=== PATIENT | male | born 1975 | race African-American/Black ===

== ENCOUNTER 2020-04-26 14:30 | Emergency (ER) | payer OTHER ==
[~2020-04-26] VITALS: Ht 185.4 cm; Wt 181.4 kg
--- NOTE | ~2020-04-26 | EMS ---
[address] [address] EMS Patient Care Report Name: AP ARMENTA Room #: DEP SULEIMAN Haque#: [id number] Admission: 04/26/20 Attend Phys: Discharge: 04/26/20 Date of : 75 Report #: [id number] THIS REPORT FOR: //name// Report Transmitted: 05/01/2020 22:03 EMS Care Summary [facility] MED-ACT Incident [id number] @ 04/26/2020 13:57 Incident Location [address] [place], [place] [address] Patient AP ARMENTA Male, 44 Years 1975 Patient Address [facility] n [address] [place] [address] Patient History Diabetes, Patient Allergies No known allergies, Patient Medications Sildenafil, Metformin, Lantus, Humalog, Chief Complaint Heat syncope Disposition Transported No Lights/[place] Dispatch Reason Cardiac Arrest/ Transported To [facility] Narrative Pt found lying supine in the front yard of a residence with his head elevated due to the natural terrain of the yard. Pt was warm to the touch and sweating. Pt states "I started to feel light headed and dizzy so I laid down in the grass. I woke up to the mailman pushing on my chest. I feel ok now I just [address] [address] EMS Patient Care Report Name: AP ARMENTA Room #: DEP ER Shabnam#: [id number] Admission: 04/26/20 Attend Phys: Discharge: 04/26/20 Date of : 75 Report #: [id number] need a drink of water." Pt denies any chest pain, nausea, vomiting, dizziness or shortness of breath. Pt was assisted the ambulance cot and secured to cot with seat belts. Pt was moved to the ambulance without incident. EMS alerted [facility] on [facility]. Pt was delivered to ER bed 9 without change. Pt was assisted to hospital bed and secured with locked side rails in the upright position. EMS gave report to receiving hospital staff transferring care and pt to them. Initial Vitals @14:11P: 99,BP: 145/86,SpO2: 94, @14:04P: 105,SpO2: 95,[place] Suspected: false @14:23P: 103,R: 18,BP: 122/83,Pain: 0/10,GCS: 15,SpO2: 95,Revised Trauma: 12, @14:01P: 105,R: 18,BP: 156/111,Pain: 0/10,GCS: 15,Glucose: 328,SpO2: 95,Revised Trauma: 12, Assessments @14:05MENTAL:Person Oriented,Time Oriented,Event Oriented,Place Oriented,SKIN:Diaphoresis,Hot,HEENT:Eyes: Left Pupil: 3-mm,Eyes: Right Pupil: 3-mm,Head/Face: No Abnormalities,Neck/Airway: No Abnormalities,LUNG SOUNDS:General: No Abnormalities,ABDOMEN:General: No Abnormalities,PELVIS//GI:No Abnormalities,EXTREMITIES:Left Arm: No Abnormalities,Right Arm: No Abnormalities,Left Leg: No Abnormalities,Right Leg: No Abnormalities,PULSE:Radial: 2+ Normal,NEURO:No Abnormalities, Impression Generalized Weakness Procedures @14:13Normal Saline (.9% NaCl) 200cc (18 ga) Site: Antecubital-LeftResponse: ImprovedSucceeded Timeline 13:55,Call Received 13:55,Psap Call 13:57,Dispatched 13:57,En Route 13:59,On Scene 14:00,At Patient 14:01,BP: 156/111 M,PULSE: 105,RR: 18 R,SPO2: 95 Ox,ETCO2: ,B,PAIN: 0,GCS: 15, 14:04,BP: / M,PULSE: 105,RR: R,SPO2: 95 Ox,ETCO2: ,BG: ,PAIN: ,GCS: , 14:11,BP: 145/86 M,PULSE: 99,RR: R,SPO2: 94 Ox,ETCO2: ,BG: ,PAIN: ,GCS: , 14:13,Normal Saline (.9% NaCl) 200cc 18 ga Site: Antecubital-Left,[facility] [address] [place] [address] EMS Patient Care Report Name: AP ARMENTA Room #: DEP SULEIMAN Haque#: [id number] Admission: 04/26/20 Attend Phys: Discharge: 04/26/20 Date of : 75 Report #: [id number] 14:16,Depart Scene 14:23,BP: 122/83 M,PULSE: 103,RR: 18 R,SPO2: 95 Ox,ETCO2: ,BG: ,PAIN: 0,GCS: 15, 14:24,At Destination 14:46,Call Closed Disclaimer v1.1 Copyright 2020 [employer] This EMS Care Summary contains data elements from the applicable legal record (which may be displayed differently). It is designed to provide pertinent information for the following purposes: continuity of care, clinical quality, and state data reporting. The complete legal record is available to ED staff and administrators of the receiving hospital in [employer]s Patient Tracker. All data is provided "as is."
[2020-04-26] MEDS ORDERED: LIPITOR20 MG PO (14:37)
[2020-04-26] MEDS ORDERED: METFORMIN HCL500 M3 PO (14:38)
[2020-04-26] MEDS ORDERED: HUMALOG100 UNIT/1 SUBQ (14:41)
[2020-04-26] MEDS ORDERED: LANTUS SUBQ (14:41)
[2020-04-26] MEDS ORDERED: KATERZIA1 MG/1 ML PO (14:41)
[2020-04-26] MEDS ORDERED: LEXAPRO 10 MG T10 M2 PO (14:41)
[2020-04-26 15:02] LABS: ABSOLUTE NEUTROPHILS 5.1 thou/uL (1.4-8.2); BASOPHILS 0.7 % (0.0-2.0); EOSINOPHILS 2.5 % (0.0-3.0); HEMATOCRIT 36.1 % (42.0-52.0); HEMOGLOBIN 12.5 gm/dL (14.0-18.0); LYMPHOCYTES 24.4 % (24.0-44.0); MCH 31.4 pg (26.0-34.0); MCHC 34.7 g/dL (28.0-37.0); MCV 90.6 fL (80.0-100.0); PLATELET COUNT 190 thou/uL (150-400); POLYS 65.4 % (36.0-66.0); RBC 3.99 mil/uL (4.50-6.00); RDW 13.4 % (10.5-14.5); WBC 7.8 thou/uL (4.0-11.0)
[2020-04-26 15:07] LABS: ANION GAP 10 mmol/L (7-16); BUN 10 mg/dL (7-18); CALCIUM 6.7 mg/dL (8.5-10.1); CHLORIDE 106 mmol/L (98-107); CO2 23 mmol/L (21-32); CREATININE 0.7 mg/dL (0.7-1.3); GLUCOSE 263 mg/dL (74-106); POTASSIUM 3.3 mmol/L (3.5-5.1); SODIUM 139 mmol/L (136-145)
[2020-04-26 15:17] LABS: ALBUMIN 2.6 g/dL (3.4-5.0); SGOT 47 U/L (15-37); SGPT 74 U/L (30-65); TOTAL BILIRUBIN 0.2 mg/dL (0.2-1.0); TOTAL PROTEIN 5.7 g/dL (6.4-8.2); TROPONIN-I <0.06 ng/mL (<0.06)
--- NOTE | 2020-04-26 16:31 | EKG ---
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
[2020-04-26 17:09] LABS: URINE BILIRUBIN NEGATIVE (Negative); URINE BLOOD NEGATIVE (Negative); URINE CLARITY CLEAR; URINE COLOR YELLOW; URINE GLUCOSE-RANDOM* 2+ (Negative); URINE KETONES TRACE (Negative); URINE LEUKOCYTES-REFLEX NEGATIVE (Negative); URINE NITRITE-REFLEX NEGATIVE (Negative); URINE PROTEIN (DIPSTICK) NEGATIVE (Negative); URINE SPECIFIC GRAVITY >= 1.030 (1.005-1.035)
[2020-04-26 18:45] VITALS: BP 128/88
== END 2020-04-26 18:46 | disposition home or self-care (01) ==
LOC: ER 14:30
PROVIDERS: Physician Assistant
DX: T67.5XXA Heat exhaustion, unspecified, initial encounter (principal); R55 Syncope and collapse; E86.9 Volume depletion, unspecified; I10 Essential (primary) hypertension; E11.9 Type 2 diabetes mellitus without complications; Z79.4 Long term (current) use of insulin; X30.XXXA Exposure to excessive natural heat, initial encounter; Y93.89 Activity, other specified; Y92.89 Other specified places as the place of occurrence of the external cause; Y99.8 Other external cause status

== ENCOUNTER 2020-06-05 15:55 | Inpatient (IN) | payer OTHER ==
[~2020-06-05] VITALS: Ht 188 cm; Wt 183.3 kg
--- NOTE | ~2020-06-05 | EMS ---
[facility] [address] [place] [address] EMS Patient Care Report Name: AP ARMENTA Room #: 211-P ADM IN M.R.#: [id number] Admission: 06/05/20 Attend Phys: Alan Franco MD Discharge: Date of : 75 Report #: [id number] THIS REPORT FOR: //name// Report Transmitted: 06/06/2020 16:31 EMS Care Summary [facility] MED-ACT Incident [id number] @ 06/05/2020 15:09 Incident Location [address] [place] [address] Patient AP ARMENTA Male, 44 Years 1975 Patient Address [address] [place] [address] Patient History Diabetes,Hypertension (HTN), Patient Allergies No known allergies, Patient Medications Sildenafil, Metformin, Lantus, Humalog, Chief Complaint Chest Pain Disposition Transported No Lights/[place] Dispatch Reason Breathing Problem Transported To 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 Pt had been working all day in the 90 plus heat since about 8 am this morning. Pt was sweating and holding his chest. LFD stated that they gave the pt 324 mg of asa canal boat captain of ambulance. Pt had a similar issue about 2 months and was found to have [facility] [address] [place] [address] EMS Patient Care Report Name: AP ARMENTA Room #: 211-P ADM IN M.R.#: [id number] Admission: 06/05/20 Attend Phys: Alan Franco MD Discharge: Date of : 75 Report #: [id number] dehydration. Pt was moved the ambulance and he stopped sweating once he was in the AC. Pt states "I started having sharp left sided chest pain about 3 hours ago. The pain is about a 6/10 now but it goes up to an 8/10 when I try to take a deep breath then the pain goes away. Pt assisted to ambulance and secured with seat belts. Pt was moved to ambulance without incident. EMS alerted hosp on [facility] canal boat captain. Pt was delivered to ER bed 5 without change. Pt was assisted to ER bed and secured with locked side rails in the upright position. EMS gave report to receiving RN transferring care and pt to ER staff. Initial Vitals @15:34P: 112,BP: 86/59, @15:45P: 112, @15:32P: 114,BP: 111/68,Pain: 6/10,GCS: 15, @15:28P: 117,R: 18,BP: 88/58,Pain: 6/10,GCS: 15,SpO2: 98,Revised Trauma: 11, @15:29P: 112,Pain: 4/10,[place] Suspected: false @15:28P: 115,Pain: 4/10,GCS: 15,Glucose: 324,[place] Suspected: false @15:50P: 110,R: 18,BP: 148/67,Pain: 4/10,GCS: 15,SpO2: 98,Revised Trauma: 12, Assessments @16:04MENTAL:Person Oriented,Time Oriented,Event Oriented,Place Oriented,SKIN:Diaphoresis,Hot,HEENT:Eyes: Left Pupil: 3-mm,Eyes: Right Pupil: 3-mm,Head/Face: No Abnormalities,Neck/Airway: No Abnormalities,LUNG SOUNDS:General: No Abnormalities,ABDOMEN:General: No Abnormalities,PELVIS//GI:No Abnormalities,EXTREMITIES:Left Arm: No Abnormalities,Right Arm: No Abnormalities,Left Leg: No Abnormalities,Right Leg: No Abnormalities,PULSE:Radial: 2+ Normal,NEURO:No Abnormalities, Impression Chest Pain / Discomfort Procedures @PTAAspirin - 324 Milligrams (mg) - OralResponse: Improved@15:2912-Lead ECGResponse: UnchangedSucceeded@15:4512-Lead ECGResponse: UnchangedSucceeded@15:28Saline Lock 10cc (18 ga) Site: Antecubital-LeftResponse: UnchangedSucceeded Timeline SUPER[employer]ING [employer]ING,Aspirin - 324 Milligrams (mg) - Oral,Response: Improved 15:08,Call Received 15:08,Psap Call 15:09,Dispatched 15:10,En Route 15:19,On Scene 15:21,At Patient [address] [address] EMS Patient Care Report Name: KATHIAP Room #: 211-P ADM IN M.R.#: [id number] Admission: 06/05/20 Attend Phys: Alan Franco MD Discharge: Date of : 75 Report #: [id number] 15:28,Saline Lock 10cc 18 ga Site: Antecubital-Left,Response: UnchangedSucceeded, 15:28,BP: / M,PULSE: 115,RR: R,SPO2: Ox,ETCO2: ,B,PAIN: 4,GCS: 15, 15:28,BP: 88/58 M,PULSE: 117,RR: 18 R,SPO2: 98 Ox,ETCO2: ,BG: ,PAIN: 6,GCS: 15, 15:29,12-Lead ECG,Response: UnchangedSucceeded, 15:29,BP: / M,PULSE: 112,RR: R,SPO2: Ox,ETCO2: ,BG: ,PAIN: 4,GCS: , 15:32,BP: 111/68 M,PULSE: 114,RR: R,SPO2: Ox,ETCO2: ,BG: ,PAIN: 6,GCS: 15, 15:34,BP: 86/59 M,PULSE: 112,RR: R,SPO2: Ox,ETCO2: ,BG: ,PAIN: ,GCS: , 15:37,Depart Scene 15:45,12-Lead ECG,Response: UnchangedSucceeded, 15:45,BP: / M,PULSE: 112,RR: R,SPO2: Ox,ETCO2: ,BG: ,PAIN: ,GCS: , 15:50,BP: 148/67 M,PULSE: 110,RR: 18 R,SPO2: 98 Ox,ETCO2: ,BG: ,PAIN: 4,GCS: 15, 15:52,At Destination 16:25,Call Closed Disclaimer v1.1 Copyright 2020 [employer] This EMS Care Summary contains data elements from the applicable legal record (which may be displayed differently). It is designed to provide pertinent information for the following purposes: continuity of care, clinical quality, and state data reporting. The complete legal record is available to ED staff and administrators of the receiving hospital in [employer]'s Patient Tracker. All data is provided "as is."
--- NOTE | ~2020-06-05 | EMS ---
[facility] [address] [place] [address] EMS Patient Care Report Name: AP ARMENTA Room #: 170-5 ADM IN M.R.#: [id number] Admission: 06/05/20 Attend Phys: Alan Franco MD Discharge: Date of : 75 Report #: [id number] THIS REPORT FOR: //name// Report Transmitted: 06/05/2020 19:54 EMS Care Summary [facility] MED-ACT Incident [id number] @ 06/05/2020 15:09 Incident Location [address] [place] [address] Patient AP ARMENTA Male, 44 Years 1975 Patient Address [address] [place] [address] Patient History Diabetes,Hypertension (HTN), Patient Allergies No known allergies, Patient Medications Sildenafil, Metformin, Lantus, Humalog, Chief Complaint Chest Pain Disposition Transported No Lights/[place] Dispatch Reason Breathing Problem Transported To [facility] Narrative 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 Pt had been working all day in the 90 plus heat since about 8 am this morning. Pt was sweating and holding his chest. LFD stated that they gave the pt 324 mg of asa therapist's assistant of ambulance. Pt had a similar issue about 2 months and was found to have [facility] [address] [place] [address] EMS Patient Care Report Name: AP ARMENTA Room #: 170-5 ADM IN M.R.#: [id number] Admission: 06/05/20 Attend Phys: Alan Franco MD Discharge: Date of : 75 Report #: [id number] dehydration. Pt was moved the ambulance and he stopped sweating once he was in the AC. Pt states "I started having sharp left sided chest pain about 3 hours ago. The pain is about a 6/10 now but it goes up to an 8/10 when I try to take a deep breath then the pain goes away. Pt assisted to ambulance and secured with seat belts. Pt was moved to ambulance without incident. EMS alerted hosp on [facility] therapist's assistant. Pt was delivered to ER bed 5 without change. Pt was assisted to ER bed and secured with locked side rails in the upright position. EMS gave report to receiving RN transferring care and pt to ER staff. Initial Vitals @15:34P: 112,BP: 86/59, @15:45P: 112, @15:32P: 114,BP: 111/68,Pain: 6/10,GCS: 15, @15:28P: 117,R: 18,BP: 88/58,Pain: 6/10,GCS: 15,SpO2: 98,Revised Trauma: 11, @15:29P: 112,Pain: 4/10,[place] Suspected: false @15:28P: 115,Pain: 4/10,GCS: 15,Glucose: 324,[place] Suspected: false @15:50P: 110,R: 18,BP: 148/67,Pain: 4/10,GCS: 15,SpO2: 98,Revised Trauma: 12, Assessments @16:04MENTAL:Person Oriented,Time Oriented,Event Oriented,Place Oriented,SKIN:Diaphoresis,Hot,HEENT:Eyes: Left Pupil: 3-mm,Eyes: Right Pupil: 3-mm,Head/Face: No Abnormalities,Neck/Airway: No Abnormalities,LUNG SOUNDS:General: No Abnormalities,ABDOMEN:General: No Abnormalities,PELVIS//GI:No Abnormalities,EXTREMITIES:Left Arm: No Abnormalities,Right Arm: No Abnormalities,Left Leg: No Abnormalities,Right Leg: No Abnormalities,PULSE:Radial: 2+ Normal,NEURO:No Abnormalities, Impression Chest Pain / Discomfort Procedures @PTAAspirin - 324 Milligrams (mg) - OralResponse: Improved@15:2912-Lead ECGResponse: UnchangedSucceeded@15:4512-Lead ECGResponse: UnchangedSucceeded@15:28Saline Lock 10cc (18 ga) Site: Antecubital-LeftResponse: UnchangedSucceeded Timeline 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,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 - 324 Milligrams (mg) - Oral,Response: Improved 15:08,Call Received 15:08,Psap Call 15:09,Dispatched 15:10,En Route 15:19,On Scene 15:21,At Patient [address] [address] EMS Patient Care Report Name: AP ARMENTA Room #: 170-5 ADM IN M.R.#: [id number] Admission: 06/05/20 Attend Phys: Alan Fracno MD Discharge: Date of : 75 Report #: [id number] 15:28,Saline Lock 10cc 18 ga Site: Antecubital-Left,Response: UnchangedSucceeded, 15:28,BP: / M,PULSE: 115,RR: R,SPO2: Ox,ETCO2: ,B,PAIN: 4,GCS: 15, 15:28,BP: 88/58 M,PULSE: 117,RR: 18 R,SPO2: 98 Ox,ETCO2: ,BG: ,PAIN: 6,GCS: 15, 15:29,12-Lead ECG,Response: UnchangedSucceeded, 15:29,BP: / M,PULSE: 112,RR: R,SPO2: Ox,ETCO2: ,BG: ,PAIN: 4,GCS: , 15:32,BP: 111/68 M,PULSE: 114,RR: R,SPO2: Ox,ETCO2: ,BG: ,PAIN: 6,GCS: 15, 15:34,BP: 86/59 M,PULSE: 112,RR: R,SPO2: Ox,ETCO2: ,BG: ,PAIN: ,GCS: , 15:37,Depart Scene 15:45,12-Lead ECG,Response: UnchangedSucceeded, 15:45,BP: / M,PULSE: 112,RR: R,SPO2: Ox,ETCO2: ,BG: ,PAIN: ,GCS: , 15:50,BP: 148/67 M,PULSE: 110,RR: 18 R,SPO2: 98 Ox,ETCO2: ,BG: ,PAIN: 4,GCS: 15, 15:52,At Destination 16:25,Call Closed Disclaimer v1.1 Copyright 2020 [employer] This EMS Care Summary contains data elements from the applicable legal record (which may be displayed differently). It is designed to provide pertinent information for the following purposes: continuity of care, clinical quality, and state data reporting. The complete legal record is available to ED staff and administrators of the receiving hospital in [employer]'s Patient Tracker. All data is provided "as is."
[2020-06-05 15:55] VITALS: BP 90/47
[~2020-06-05 15:55] MED LIST: HUMALOG100 UNIT/1 SUBQ; KATERZIA1 MG/1 ML PO; LANTUS SUBQ; LEXAPRO 10 MG T10 M2 PO; LIPITOR20 MG PO; METFORMIN HCL500 M3 PO
[2020-06-05 17:18] LABS: ABSOLUTE NEUTROPHILS 11.1 thou/uL (1.4-8.2); BASOPHILS 0.8 % (0.0-2.0); EOSINOPHILS 1.1 % (0.0-3.0); HEMATOCRIT 45.2 % (42.0-52.0); HEMOGLOBIN 15.7 gm/dL (14.0-18.0); LYMPHOCYTES 17.7 % (24.0-44.0); MCHC 34.7 g/dL (28.0-37.0); MCV 89.3 fL (80.0-100.0); MONOCYTES 7.9 % (1.0-8.0); PLATELET COUNT 268 thou/uL (150-400); POLYS 72.5 % (36.0-66.0); RBC 5.07 mil/uL (4.50-6.00); RDW 13.2 % (10.5-14.5); WBC 15.3 thou/uL (4.0-11.0)
[2020-06-05 17:26] LABS: ANION GAP 10 mmol/L (7-16); BUN 14 mg/dL (7-18); CALCIUM 9.7 mg/dL (8.5-10.1); CHLORIDE 97 mmol/L (98-107); CO2 26 mmol/L (21-32); CREATININE 3.1 mg/dL (0.7-1.3); GLUCOSE 317 mg/dL (74-106); POTASSIUM 4.3 mmol/L (3.5-5.1); SODIUM 133 mmol/L (136-145)
[2020-06-05 17:35] LABS: TROPONIN-I <0.06 ng/mL (<0.06)
--- NOTE | 2020-06-05 19:34 | NUR ---
PT NOT BROUGHT BACK JOSE HENNING RN. WAS NOT ADVISED GENERAL ASSESSMENT, ETC WERE NOT DONE ON PT. ASSIGNED NURSE MILADY , WAS ASKED TO 'TRIAGE PTS' AN WAS THEREFORE AT THE FRONT FOR OVER AN HOUR. ASSUMPTION WAS CARE WAS BEING PROVIDED BY BECKY PERDOMO. ASKED NIKUNJ TO PLEASE COMPLETE REMAINING MISSING CHARTING
[2020-06-05] MEDS ORDERED: NORVASC 2.5 MG2.5 M1 PO (20:46)
[2020-06-05 21:32] VITALS: BP 100/53
[2020-06-05 21:51] VITALS: BP 106/72
[2020-06-05] MEDS ORDERED: VICTOZA0.6 MG/0.1 SUBQ (22:11)
[2020-06-05] MEDS ORDERED: AMLODIPINE-BEN1 EAC3 PO (22:13)
[2020-06-05 22:15] VITALS: BP 117/75
[2020-06-05] MEDS ORDERED: SILDENAFIL CITR50 MG PO (22:15)
[2020-06-05 22:35] LABS: CHOLESTEROL 277 mg/dL (<200); HDL CHOLESTEROL 39 mg/dL (>40); LDL CHOLESTEROL 182 mg/dL (<100); TC:HDL 7.1 Ratio (Not establshd); TRIGLYCERIDE 284 mg/dL (<150); VLDL 57 mg/dL (<40)
[2020-06-05 22:41] LABS: SERUM ASSESSMENT Clear
[2020-06-06] VITALS: BP 96/54
--- NOTE | 2020-06-06 02:47 | NUR ---
PATIENT TRANSFERRED FROM ICU AND ASSUMED CARE AT APPROXIMATELY 2210. PATIENT CONINUES TO C/O SHARP CHEST PAIN IN THE MIDDLE OF CHEST THAT DOESN'T RADIATE. ADMINISTERED PRN MORPHINE ORDERED. PATIENT CURRENTLY SINUS RHYTHM ON MONITOR.
[2020-06-06 04:00] VITALS: BP 124/75
[2020-06-06 06:11] LABS: ABSOLUTE NEUTROPHILS 6.6 thou/uL (1.4-8.2); BASOPHILS 0.7 % (0.0-2.0); EOSINOPHILS 1.9 % (0.0-3.0); HEMATOCRIT 42.9 % (42.0-52.0); HEMOGLOBIN 14.4 gm/dL (14.0-18.0); LYMPHOCYTES 23.4 % (24.0-44.0); MCH 30.5 pg (26.0-34.0); MCHC 33.5 g/dL (28.0-37.0); MONOCYTES 8.4 % (1.0-8.0); PLATELET COUNT 231 thou/uL (150-400); POLYS 65.6 % (36.0-66.0); RBC 4.72 mil/uL (4.50-6.00); RDW 13.3 % (10.5-14.5)
[2020-06-06 06:52] LABS: ANION GAP 12 mmol/L (7-16); BUN 16 mg/dL (7-18); CALCIUM 8.3 mg/dL (8.5-10.1); CHLORIDE 100 mmol/L (98-107); CO2 24 mmol/L (21-32); GLUCOSE 321 mg/dL (74-106); POTASSIUM 4.1 mmol/L (3.5-5.1); SODIUM 136 mmol/L (136-145); TROPONIN-I <0.06 ng/mL (<0.06)
[2020-06-06 06:53] LABS: CREATININE 1.5 mg/dL (0.7-1.3)
[2020-06-06 08:30] VITALS: BP 136/82
--- NOTE | 2020-06-06 09:12 | EKG ---
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: [facility] : 1975 Requested By: Davis Stahl Order Number: [id number] MD: Romie Mercado Measurements Intervals [place] Rate: 102 P: 64 IA: 157 QRS: 17 QRSD: 93 T: 2 QT: 319 QTc: 416 Interpretive Statements Sinus tachycardia Probable left atrial enlargement Low voltage, precordial leads RSR' in V1 or V2, probably normal variant Compared to ECG 04/26/2020 14:49:50 Low QRS voltage now present RSR' in V1 or V2 now present Electronically Signed On 06-06-2020 9:12:33 CDT by Romie Mercado [email or web address] <ELECTRONICALLY SIGNED> By: Romie Mercado MD 06/06/20911 00 00 Romie Mercado MD /EPI
--- NOTE | 2020-06-06 09:13 | EKG ---
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 : 1975 Requested By: Davis Stahl Order Number: [id number] MD: Romie Mercado Measurements Intervals [place] Rate: 84 P: 55 W[place]: 166 QRS: 10 QRSD: 95 T: -8 QT: 357 QTc: 422 Interpretive Statements Sinus rhythm Probable left atrial enlargement Borderline T abnormalities, inferior leads Compared to ECG 06/05/2020 16:01:06 T-wave abnormality now present Sinus tachycardia no longer present Electronically Signed On 06-06-2020 9:13:00 CDT by Romie Mercado [email or web address] <ELECTRONICALLY SIGNED> By: Romie Mercado MD 06/06/20 0913 175 57 Romie Mercado MD /EPI
[2020-06-06] MEDS ORDERED: LIPITOR40 MG PO (10:37)
[2020-06-06 11:30] VITALS: BP 138/82
[2020-06-06 15:48] VITALS: BP 138/81
--- NOTE | 2020-06-06 16:54 | NUR ---
PT CARE ASSUMED APPROX 0700. ASSESSMENT CHARTED. PT DENIES PAIN AND SOA. VSS. UP WITH STEADY GAIT. BS ELEVATED, MANAGED BY POC. PT ORIENTED TO POC THIS AM. DENIED QUESTIONS OR CONCERNS REGARDING POC. TOLERATING POC. POC TO CONTINUE. NO DISTRESS NOTED.
--- NOTE | 2020-06-06 18:31 | NUR ---
Met with patient who resides at home with spouse. 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 Patient admits with chest pain he sustained while working EMS was called. He is fearful he may have lost job as second event where he could not return the [employer] truck, Patient with no health insurance. PCP is Dr See To. He is diabetic and reports running out of medications. Hygrton, Flonase, lipitor, Lotrel, Humalog, Lantus, Metformin, Laxapro, victoza, and diabetic supplies. Patient given [facility] clinic information.
[2020-06-06 20:33] VITALS: BP 124/73
[2020-06-07] VITALS (11 sets, daily range): BP systolic 144–183; BP diastolic 72–109
--- NOTE | 2020-06-07 04:33 | NUR ---
SLEPT MOST OF SHIFT. UP AD ADI TO BATHROOM WITH STEADY GAIT. NO COMPLAINTS OF CHEST PAIN THIS SHIFT. WORKING ON GOALS AND PLAN OF CARE FOR NOC. PROGRESSING SLOWLY TOWARDS DISCHARGE GOALS. CONTINUE TO ASSES CLOSELY.
[2020-06-07 05:07] LABS: GLYCOHEMOGLOBIN (HGB A1C) 13.4 % (4.8-5.6)
[2020-06-07 05:21] LABS: HEMATOCRIT 43.1 % (42.0-52.0); HEMOGLOBIN 14.3 gm/dL (14.0-18.0); MCH 30.6 pg (26.0-34.0); MCHC 33.2 g/dL (28.0-37.0); MCV 92.3 fL (80.0-100.0); RBC 4.67 mil/uL (4.50-6.00); RDW 13.3 % (10.5-14.5); WBC 8.9 thou/uL (4.0-11.0)
[2020-06-07 05:32] LABS: CALCIUM 8.2 mg/dL (8.5-10.1); POTASSIUM 4.3 mmol/L (3.5-5.1)
--- NOTE | 2020-06-07 07:04 | NUR ---
0500 BP 154/103. SPOKE WITH WORM SORTER AND ORDERS FOR AMOLODIPINE RECEIVED. 0607 MEDICATION GIVEN.
--- NOTE | 2020-06-07 10:04 | NUR ---
ASSUMED CARE OF PT AT SHIFT CHANGE, A&OX4, AMB STEADY, C/O GENERALIZED ALL OVER PAIN. GOOD APPETITE, AGREES TO STRESS TEST WHICH IS TENATIVELY PLANNED FOR THIS AFTERNOON, SEE SEPARATE INTERVENTIONS FOR ASSESSMENTS. ENCOURAGED PT TO USE CALL LIGHT FOR ANY NEEDS. WILL CONTINUE TO MONITOR
[2020-06-07] MEDS ORDERED: NORVASC5 MG PO (15:30)
--- NOTE | 2020-06-07 15:33 | NUR ---
SEVEN REACHED OUT TO FREDDIE (GLOVE CUTTER) TO INFORM PT SCRIPTS WERE NOT IN CHART. FREDDIE CONTACT PT'S DOCTOR TO HAVE DOCTOR CALL IN SCRIPTS TO THE PHARMACY.
--- NOTE | 2020-06-07 17:04 | NUR ---
CM VOUCHED FOR MEDS AT COST OF $368.98. MEDS GIVEN TO [address] [place]. RECEIPT GIVEN TO CM DIRECTOR.
--- NOTE | 2020-06-08 01:50 | NUR ---
2240 BP 183/93. DR. TRIMBLE NOTIFIED AND ORDERS GIVEN FOR ONETIME AMLODIPINE CHANGE DAILY DOSE TO 10 MG AND WILL ASSES IN AM. 2300 BP 151/72. CONTINUE TO ASSES.
[2020-06-08 04:18] VITALS: BP 171/97
[2020-06-08 05:15] VITALS: BP 155/93
[2020-06-08 05:37] LABS: HEMATOCRIT 42.1 % (42.0-52.0); HEMOGLOBIN 14.1 gm/dL (14.0-18.0); MCH 30.5 pg (26.0-34.0); MCHC 33.5 g/dL (28.0-37.0); RBC 4.63 mil/uL (4.50-6.00); RDW 13.5 % (10.5-14.5)
[2020-06-08 06:12] LABS: CALCIUM 8.6 mg/dL (8.5-10.1); CREATININE 0.9 mg/dL (0.7-1.3)
[2020-06-08 07:30] VITALS: BP 162/108; BP 172/109
--- NOTE | 2020-06-08 07:36 | NUR ---
SLEPT MOST OF SHIFT. UP AD ADI IN ROOM WITH STEADY GAIT. WORKING ON GOALS AND PLAN OF CARE FOR NOC. BP THIS AM 155/93. CONTINUE TO ASSES CLOSELY. PROGRESSING SLOWLY TOWARDS DISCHARGE GOALS.
--- NOTE | 2020-06-08 08:13 | NUR ---
ASSUMED CARE OF PT AT SHIFT CHANGE, A&0X4, AMB STEADY. R GROIN SITE CDI, NO NEEDS AT THIS TIME, HTN, COMM W/PHYSICIAN FOR PRNS AT END OF SHIFT.SEE SEPARATE INTERVENTIONS FOR ASSESSMENTS. GAVE D/C EDUCATION. WILL CONTINUE TO MONITOR. ENCOURAGED PT TO USE CALL LIGHT FOR ANY NEEDS
[2020-06-08 12:52] VITALS: BP 155/93
--- NOTE | 2020-06-10 09:08 | CATHLAB ---
[facility] [place] [address] INVASIVE PROCEDURE REPORT Name: AP ARMENTA Room #: 211-P [facility] IN M.R.#: [id number] Admission: 06/05/20 Attend Phys: Alna Franco MD Discharge: 06/08/20 Date of : 75 Report #: [id number] THIS REPORT FOR: cc: FAM - No family physician/PCP FAM - No family physician/PCP Wong Vidales MD ~ APPROVED REPORT Study performed: 06/07/2020 16:27:21 Patient Details The patient is a 44 year-old male Event Personnel Wong Vidales Stabilizing Machine Operator, Yury Pan RN RN, Hong Tran RTR Bbo Sanchez Alison RT(R)() Monitor Procedures Performed Art Access - R femoral artery* Left Heart Cath w/or w/o Coronaries [id number] [facility] [id number] Initial Mod Sed Same Phys/QHP Gr5y [id number] Hemostasis with Manual pressure Indication Dyspnea, Positive stress test, Chest pain Risk Factors Obesity, HypercholesterolemiaPhysical Activity, Hypertension, Diabetes Procedure Narrative The Right Groin^ was infiltrated with 1% Lidocaine subcutaneous anesthesia. A PINNACLE 4FR Sheath #[id number] sheath was inserted into the RFA 4F^. Coronary angiography was performed using coronary diagnostic catheters. The right coronary system was accessed and visualized with a JR4 catheter. The left coronary system was accessed and visualized with a JL5 catheter. The left ventricle was accessed and visualized with a JR4 catheter. Hemostasis was obtained with manual pressure following sheath removal without any complications. The patient tolerated the procedure well and there were no complications associated with the procedure. There was no hematoma. Intraoperative Conscious Sedation Fentanyl 50 mcg Versed 2 mg [facility] [address] [place] [address] INVASIVE PROCEDURE REPORT Name: KATHIAP Room #: 211-P [facility].#: [id number] Admission: 06/05/20 Attend Phys: Alan Franco MD Discharge: 06/08/20 Date of : 75 Report #: [id number] Fluoro Time: 2.42 minutes Dose: DAP 9565.90 cGycm2 Contrast Type and Amount: Omnipaque 50 ml Coronary Angiography The patient's coronary anatomy is co- dominant. Diagnostic Cath Left Main This is a large-caliber vessel, with no flow-limiting lesions. LAD The LAD is a moderate-sized caliber vessel, traverses the anterior wall and wraps around the apex. This vessel is patent, with no flow-limiting lesions. Diagonal 1 There is a patent vessel, with no flow-limiting lesions. Circumflex This is a codominant vessel, patent with no flow-limiting lesions. OM1 This is a small to moderate-sized caliber vessel, with no flow-limiting lesions. OM2 This is a moderate-sized caliber vessel, supplies several branches. There may be minimal luminal irregularities in the proximal segment of OM 2. Right Coronary The RCA is a moderate-sized caliber vessel, with minimal luminal irregularities in the proximal segment. R PDA This is a patent vessel, with no flow-limiting lesions. Left Ventriculography Left Ventriculography was not performed. Ejection Fraction was >55% based off patient's Nuclear Cardiac Stress Test. An LVEDP was measured and there is no gradient across the outflow tract. Hemodynamics The aortic pressure is 137/95 mmHg with a mean of 114 mmHg. The left ventricular pressure is 132/16 mmHg with a mean of mmHg. The left ventricular end diastolic pressure is 26 mmHg. Conclusion 1. Angiographically normal coronary arteries, with minimal luminal irregularities as noted. 2. Normal LV systolic function. [facility] [address] [place] [address] INVASIVE PROCEDURE REPORT Name: AP ARMENTA Room #: 211-P [facility] IN .R.#: [id number] Admission: 06/05/20 Attend Phys: Alan Franco MD Discharge: 06/08/20 Date of : 75 Report #: [id number] 3. Codominant system. 4. Recommend guideline directed medical therapy. <ELECTRONICALLY SIGNED> By: Wong Vidales MD 06/10/20906 [id number] Wong Vidales MD /INF
== END 2020-06-08 15:29 | disposition home or self-care (01) | DRG 204 ==
LOC: ER 15:55 → EROBS 20:50 → 2N 22:01
PROVIDERS: Emergency Medicine; Internal Medicine Cardiovascular Disease; Nurse Practitioner Family; ADMIT Hospitalist; ATTEND Hospitalist
PROC: B2111ZZ Fluoroscopy of Multiple Coronary Arteries using Low Osmolar Contrast (ICD-10-PCS; principal; 2020-06-07)
PROC: 4A023N7 Measurement of Cardiac Sampling and Pressure, Left Heart, Percutaneous Approach (ICD-10-PCS; principal; 2020-06-07)
DX: R07.1 Chest pain on breathing (principal); N17.0 Acute kidney failure with tubular necrosis; M62.82 Rhabdomyolysis; I10 Essential (primary) hypertension; I95.9 Hypotension, unspecified; T67.5XXA Heat exhaustion, unspecified, initial encounter; X58.XXXA Exposure to other specified factors, initial encounter; E78.5 Hyperlipidemia, unspecified; E11.65 Type 2 diabetes mellitus with hyperglycemia; D72.829 Elevated white blood cell count, unspecified; E78.00 Pure hypercholesterolemia, unspecified; Y93.89 Activity, other specified; Y92.89 Other specified places as the place of occurrence of the external cause; Y99.8 Other external cause status; Z79.84 Long term (current) use of oral hypoglycemic drugs; Z79.899 Other long term (current) drug therapy; Z79.4 Long term (current) use of insulin
CPT/HCPCS: 10081